=== PATIENT | female | born 1955 | race Caucasian/White ===

== ENCOUNTER 2018-11-30 18:27 | Inpatient (IN) | payer BC ==
[~2018-11-30] VITALS: Ht 167.6 cm; Wt 90.3 kg
[~2018-11-30 18:27] MED LIST: AZITHROMYCIN 2250 MG PO; CEFTIN500 MG PO; FISH OIL 1,001000 M2 PO; MUCINEX TA600 MG/TA2 PO; PREDNISONE 10 M10 MG PO; TESSALON PERLE100 MG PO; VALIUM5 MG PO; VENTOLIN HFA 1818 GM INH
[2018-11-30 18:41] VITALS: BP 140/88
[2018-11-30 19:53] LABS: ABSOLUTE BASOPHILS 0.1 thou/uL (0.0-0.2); ABSOLUTE EOSINOPHILS 0.2 thou/uL (0.0-0.7); ABSOLUTE LYMPHOCYTES 1.7 thou/uL (0.8-5.3); ABSOLUTE MONOCYTES 0.9 thou/uL (0.0-1.2); ABSOLUTE NEUTROPHILS 3.4 thou/uL (1.6-8.1); BASOPHILS 0.9 %; EOSINOPHILS 3.6 %; HEMATOCRIT 41.5 % (37.0-47.0); HEMOGLOBIN 14.3 gm/dL (12.0-15.0); LYMPHOCYTES 27.6 %; MCH 31.5 pg (26.0-34.0); MCHC 34.6 g/dL (28.0-37.0); MCV 91.2 fL (80.0-100.0); MONOCYTES 13.8 %; MPV 7.5 fl. (7.2-11.1); NUCLEATED RBCS 0 /100WBC; PLATELET COUNT* 239 thou/uL (150-400); POLYS 54.1 %; RBC 4.55 mil/uL (4.20-5.00); RDW-CV 13.9 % (10.5-14.5); WBC 6.2 thou/uL (4.0-11.0)
[2018-11-30 20:07] LABS: ANION GAP 7 mmol/L (7-16); BUN 17 mg/dL (7-18); CALCIUM 10.3 mg/dL (8.5-10.1); CHLORIDE 101 mmol/L (98-107); CO2 31 mmol/L (21-32); GLUCOSE 92 mg/dL (70-99); POTASSIUM 3.5 mmol/L (3.5-5.1); SODIUM 139 mmol/L (136-145); TROPONIN-I LEVEL <0.06 ng/mL (<0.06)
[2018-11-30 20:14] LABS: ALBUMIN 4.2 g/dL (3.4-5.0); ALKALINE PHOSPHATASE 89 U/L (46-116); NT-PRO BRAIN NAT PEPTIDE 34 pg/mL (<300); SGOT 24 U/L (15-37); SGPT 26 U/L (30-65); TOTAL BILIRUBIN 0.3 mg/dL (<0.1-1.0)
[2018-11-30 21:16] LABS: INFLUENZA A ANTIGEN None Detected (None Detect); INFLUENZA B ANTIGEN None Detected (None Detect)
[2018-12-01] VITALS (7 sets, daily range): BP systolic 115–148; BP diastolic 68–82
[2018-12-01 02:04] LABS: HEMATOCRIT 40.5 % (37.0-47.0); HEMOGLOBIN 13.7 gm/dL (12.0-15.0); MCH 30.9 pg (26.0-34.0); MCHC 33.9 g/dL (28.0-37.0); MPV 7.7 fl. (7.2-11.1); RBC 4.46 mil/uL (4.20-5.00); RDW-CV 13.8 % (10.5-14.5); WBC 6.7 thou/uL (4.0-11.0)
[2018-12-01 02:15] LABS: CALCIUM 9.5 mg/dL (8.5-10.1); CREATININE 1.1 mg/dL (0.6-1.3); MAGNESIUM 2.1 mg/dL (1.8-2.4); POTASSIUM 3.2 mmol/L (3.5-5.1); TOTAL BILIRUBIN 0.2 mg/dL (<0.1-1.0); TOTAL PROTEIN 7.7 g/dL (6.4-8.2)
[2018-12-02 03:09] LABS: GLYCOHEMOGLOBIN (HGB A1C) 5.5 % (4.8-5.6)
[2018-12-02 08:00] VITALS: BP 129/71
[2018-12-02 15:00] VITALS: BP 141/86
--- NOTE | 2018-12-02 16:32 | EKG ---
[place] [address] ELECTROCARDIOGRAM REPORT Name: FELIBERTO FREEMAN Room: [address] ADM IN .R.#: [id number] Admission: 11/30/18 Attend Phys: Arti Cardona MD Discharge: Date of : 55 Report #: [id number] THIS REPORT FOR: //name// [facility] ED Test Date: 2018-11-30 Test Time: 19:35:26 Pat Name: FELIBERTO FREEMAN Department: Room: [facility] Gender: F Dough Sheeter: CECILIO : 1955 Requested By: Merry Mclean Order Number: [id number] MD: Garcia Maurice Measurements Intervals [place] Rate: 69 P: 47 SD: 168 QRS: -38 QRSD: 111 T: 68 QT: 395 QTc: 423 Interpretive Statements Sinus rhythm Incomplete RBBB and LAFB RSR' in V1 or V2, right VCD or RVH Compared to ECG 08/27/2016 16:55:09 Right ventricular hypertrophy now present RSR' in V1 or V2 now present Electronically Signed On 12-02-2018 16:32:15 [employer] by Garcia Maurice [email or web address] <ELECTRONICALLY SIGNED> By: Garcia Maurice MD, FACC 12/02/18 1632 34 34 Garcia Maurice MD, FAC /EPI
[2018-12-02 21:00] VITALS: BP 124/73
[2018-12-03 07:21] VITALS: BP 183/75
--- NOTE | 2018-12-03 08:21 | CON ---
[address] [address] CONSULTATION Name: FELIBERTO FREEMAN Room: [address] IN .R.#: [id number] Admission: 11/30/18 Attend Phys: Arti Cardona MD Discharge: Date of : 55 Report #: [id number] THIS REPORT FOR: //name// CC: ANDRIA physician/PCP Arti Cardona DATE OF SERVICE: 12/02/2018 REASON FOR CONSULTATION: Difficulty breathing. HISTORY OF PRESENT ILLNESS: This is a 63-year-old female patient who is not known to have chronic lung disease. Upon further clarification, she told me she had tendency to have bronchospasm and dyspnea with minor viral illnesses, although she does not carry a diagnosis of asthma, never smoked before. She was given an inhaler in the past, but she does not use it. Two years ago, she had episodes of pneumonia. She presented to the hospital with a few days' history of increasing shortness of breath, cough, and wheezes. The cough is so harsh, is causing some rib pain. She had some sore throat and nasal discharge and she reports a sick contact with her grandchildren with symptoms of respiratory tract infection a month ago. Her had a positive flu. She had difficulty breathing, especially on exertion. She denied lower extremity edema. She denied any chest pain, but feels very tightness in her chest. She had some headache and she had no blurring of vision. She denied nausea or vomiting. She had no abdominal pain, no dysuria, no frequency, no urgency. ALLERGIES: CONTRAST AND IBUPROFEN. HOME MEDICATIONS: Diazepam and fish oil. PAST MEDICAL AND SURGICAL HISTORY: Include cardiac ablation SVT, with history of recurrent bronchospasm, at one point she has an inhaler at home. SOCIAL HISTORY: Never smoked. Does not drink alcohol. Does not abuse drugs. FAMILY HISTORY: Positive for heart disease. REVIEW OF SYSTEMS: Denied fever, chills, dizziness, syncope, and throat pain. She denied hemoptysis, but reports dyspnea on exertion, shortness of breath with cough. She had no dysuria, no frequency, no urgency. No focal weakness. No night sweats. A 12-point review of systems reviewed with the patient, negative unless mentioned above. PHYSICAL EXAMINATION: VITAL SIGNS: On examination, she is on room air with saturation more than 90%, blood pressure 126/78, breathing 18 times a minute, pulse rate of 91, temperature 36.7. [place] [address] CONSULTATION Name: FELIBERTO FREEMAN Room: [address]#: [id number] Admission: 11/30/18 Attend Phys: Arti Cardona MD Discharge: Date of : 55 Report #: [id number] HEENT: Head normocephalic, atraumatic. Pupils reactive to light. Oral cavity, moist mucous membranes. Mallampati of 2-3. NECK: Full range of movement. Trachea central. No masses felt. External ear looks healthy and normal. Nasal cavity patent passages. CHEST: Diminished air movement bilaterally, prolonged expiratory phase with active wheezes, inspiratory and expiratory, some rhonchi at the bases. HEART: S1, S2, no murmur. ABDOMEN: Benign, soft, lax, nontender, positive bowel sounds. EXTREMITIES: Lower extremities, no edema, no calf tenderness. NEUROLOGIC: Moving 4 extremities spontaneously. No focal weakness. Cranial nerves grossly normal. SKIN: Normal for age and race. PSYCHIATRIC: Mood and affect slightly anxious. Good insight, good judgment. LABORATORY DATA: Her chest x-ray upon hospitalization did not show acute pathology and V/Q scan was low probability for PE. Her white blood count 6.2, hemoglobin 14.3 and platelets of 239. Her creatinine is 1.1 with potassium 3.2, sodium 138, BUN is 17. BNP not elevated. Respiratory virus panel is pending, although rapid influenza A and B screen was negative. IMPRESSION: 1. Acute respiratory failure. 2. Bronchospasm. 3. Wheezes. 4. Respiratory viral illness suspected. 5. History of SVT status post ablation. I suspect the patient has a viral illness on top of hyperreactive airway disease. She has previous history of recurrent bronchospasm with recurrent bladder infection. Potentially she might have an element of asthma. She would benefit from outpatient PFT at one point and for recurrent bronchospasm, she might need long-term treatment, although at this point with acute decompensation, would recommend steroids, scheduled nebulization treatment. Follow up with respiratory virus panel. Also, would recommend symptomatic cough management. Discussed with RN. Thank you for the consult. We will continue to follow along with you. <ELECTRONICALLY SIGNED> By: Dino Go MD 12/03/18 0821 0839 [id number] Simpson MD /nt
[2018-12-03 16:48] VITALS: BP 157/84
[2018-12-03 21:30] VITALS: BP 145/100
[2018-12-04 00:58] VITALS: BP 132/80
[2018-12-05 00:17] VITALS: BP 143/77
[2018-12-05 02:08] LABS: ADENOVIRUS Negative (Negative); INFLUENZA A Negative (Negative); INFLUENZA B Negative (Negative); METAPNEUMOVIRUS Positive (Negative); PARAINFLUENZA 1 Negative (Negative); PARAINFLUENZA 2 Negative (Negative); PARAINFLUENZA 3 Negative (Negative); RHINOVIRUS Negative (Negative); RSV A Negative (Negative); RSV B Negative (Negative)
[2018-12-05 03:53] LABS: HEMATOCRIT 38.7 % (37.0-47.0); HEMOGLOBIN 12.9 gm/dL (12.0-15.0); MCH 30.6 pg (26.0-34.0); MCHC 33.4 g/dL (28.0-37.0); MCV 91.8 fL (80.0-100.0); MPV 7.7 fl. (7.2-11.1); RBC 4.22 mil/uL (4.20-5.00); RDW-CV 13.8 % (10.5-14.5); WBC 11.1 thou/uL (4.0-11.0)
[2018-12-05 04:05] LABS: CALCIUM 9.1 mg/dL (8.5-10.1); MAGNESIUM 2.6 mg/dL (1.8-2.4); POTASSIUM 4.4 mmol/L (3.5-5.1)
[2018-12-05 07:12] VITALS: BP 141/71
[2018-12-05] MEDS ORDERED: IPRAT-ALBUT 0.5-3 ML INH (12:02)
[2018-12-05] MEDS ORDERED: PREDNISONE 10 M10 MG PO (12:03)
[2018-12-05] MEDS ORDERED: PROTONIX40 M1 PO (12:03)
[2018-12-05] MEDS ORDERED: CEFDINIR300 MG PO (12:04)
[2018-12-05 13:04] VITALS: BP 141/71
[2018-12-05 15:00] VITALS: BP 141/77
[2018-12-05 22:52] VITALS: BP 159/69
[2018-12-06 07:40] VITALS: BP 137/81
[2018-12-06] MEDS ORDERED: VENTOLIN HFA 1818 GM INH (10:16)
[2018-12-06 10:18] VITALS: BP 141/71
[2018-12-06 12:14] VITALS: BP 141/71
== END 2018-12-06 12:22 | disposition home or self-care (01) | DRG 193 ==
LOC: M.ERS 18:27 → M.TBA-ER 20:40 → M.3W 20:40
PROVIDERS: Internal Medicine; Nurse Practitioner; ADMIT Internal Medicine
DX: J11.00 Influenza due to unidentified influenza virus with unspecified type of pneumonia (principal); J96.01 Acute respiratory failure with hypoxia; J21.9 Acute bronchiolitis, unspecified; J18.0 Bronchopneumonia, unspecified organism; J11.1 Influenza due to unidentified influenza virus with other respiratory manifestations; R73.03 Prediabetes; F41.9 Anxiety disorder, unspecified; K21.9 Gastro-esophageal reflux disease without esophagitis; B33.8 Other specified viral diseases; Z88.6 Allergy status to analgesic agent; Z91.041 Radiographic dye allergy status; Z82.49 Family history of ischemic heart disease and other diseases of the circulatory system; Z99.81 Dependence on supplemental oxygen; Z79.899 Other long term (current) drug therapy

== ENCOUNTER 2020-02-11 15:59 | Emergency (ER) | payer BC ==
[~2020-02-11] VITALS: Ht 165.1 cm; Wt 90.0 kg
[~2020-02-11 15:59] MED LIST changes: +CEFDINIR300 MG PO; +IPRAT-ALBUT 0.5-3 ML INH; +PROTONIX40 M1 PO
[2020-02-11] MEDS ORDERED: CHLORTHALIDONE25 MG PO (16:17)
[2020-02-11 16:47] LABS: ABSOLUTE BASOPHILS 0.1 thou/uL (0.0-0.2); ABSOLUTE EOSINOPHILS 0.1 thou/uL (0.0-0.7); ABSOLUTE LYMPHOCYTES 2.1 thou/uL (0.8-5.3); ABSOLUTE MONOCYTES 1.3 thou/uL (0.0-1.2); ABSOLUTE NEUTROPHILS 10.4 thou/uL (1.6-8.1); BASOPHILS 0.4 %; EOSINOPHILS 0.9 %; HEMATOCRIT 38.3 % (37.0-47.0); HEMOGLOBIN 13.1 gm/dL (12.0-15.0); MCH 30.9 pg (26.0-34.0); MCHC 34.1 g/dL (28.0-37.0); MCV 90.8 fL (80.0-100.0); MONOCYTES 9.1 %; MPV 7.6 fl. (7.2-11.1); NUCLEATED RBCS 0 /100WBC; PLATELET COUNT* 280 thou/uL (150-400); POLYS 74.6 %; RBC 4.23 mil/uL (4.20-5.00)
[2020-02-11 17:00] LABS: POTASSIUM 3.5 mmol/L (3.5-5.1)
[2020-02-11 17:04] LABS: ALBUMIN 3.8 g/dL (3.4-5.0); TOTAL BILIRUBIN 0.5 mg/dL (<0.1-1.0); TOTAL PROTEIN 7.9 g/dL (6.4-8.2)
[2020-02-11] MEDS ORDERED: TESSALON PERLE100 MG PO (17:29)
[2020-02-11] MEDS ORDERED: ZPAK PO (17:29)
[2020-02-11] MEDS ORDERED: TYLENOL WITH CO1 TA1 PO (17:29)
[2020-02-11 17:53] VITALS: BP 158/82
--- NOTE | 2020-02-12 08:31 | EKG ---
[place] [address] ELECTROCARDIOGRAM REPORT Name: FELIBERTO FREEMAN Room: [facility]#: [id number] Admission: 02/11/20 Attend Phys: Discharge: 02/11/20 Date of : 55 Date of Service: 02/11/20 165 Report #: [id number] THIS REPORT FOR: //name// [facility] ED Test Date: 2020-02-11 Test Time: 16:53:42 Pat Name: FELIBERTO FREEMAN Department: Room: Gender: Proration Clerk: : 1955 Requested By: Sarmad Mei Order Number: [id number] MD: Garcia Maurice Measurements Intervals [place] Rate: 93 P: 58 ND: 163 QRS: -61 QRSD: 100 T: 76 QT: 364 QTc: 453 Interpretive Statements Sinus rhythm Left anterior fascicular block Abnormal R-wave progression, late transition Probable left ventricular hypertrophy Compared to ECG 11/30/2018 19:35:26 Incomplete right bundle-branch block no longer present Right bundle-branch block no longer present Right ventricular hypertrophy no longer present Electronically Signed On 02-12-2020 8:29:22 CDT by Garcia Maurice [email or web address] <ELECTRONICALLY SIGNED> By: Garcia Maurice MD, FAC 02/12/20 0829 1653 165 Garcia Maurice MD, [facility] /EPI
== END 2020-02-11 17:55 | disposition home or self-care (01) ==
LOC: M.ERS 15:59
PROVIDERS: Physician Assistant
DX: J18.9 Pneumonia, unspecified organism (principal); Z90.711 Acquired absence of uterus with remaining cervical stump; Z91.041 Radiographic dye allergy status; Z88.6 Allergy status to analgesic agent

== ENCOUNTER 2021-03-31 16:42 | Emergency (ER) | payer MEDICARE, BC ==
[~2021-03-31] VITALS: Ht 167.6 cm; Wt 90.7 kg
[~2021-03-31 16:42] MED LIST changes: +CHLORTHALIDONE25 MG PO; +TYLENOL WITH CO1 TA1 PO; +ZPAK PO
[2021-03-31] MEDS ORDERED: LISINOPRIL10 MG PO (17:25)
[2021-03-31] MEDS ORDERED: NEURONTIN100 MG PO (17:25)
[2021-03-31] MEDS ORDERED: CELEBREX50 MG PO (17:25)
[2021-03-31 19:25] VITALS: BP 143/94
[2021-03-31] MEDS ORDERED: APAP W/CODEINE1 TA2 PO (19:26)
== END 2021-03-31 19:25 | disposition home or self-care (01) ==
LOC: M.ERS 16:42
DX: M25.572 Pain in left ankle and joints of left foot (principal); Z91.041 Radiographic dye allergy status; Z88.6 Allergy status to analgesic agent; Z79.1 Long term (current) use of non-steroidal anti-inflammatories (NSAID); Z90.710 Acquired absence of both cervix and uterus